=== PATIENT | male | born 1995 | race Hispanic/Latino ===

== ENCOUNTER 2024-07-13 09:54 | Emergency (ER) | payer SELFPAY ==
[2024-07-13] MEDS: Ketorolac 30 MG/ML SDV IM ONE (10:50)
== END 2024-07-13 11:10 | disposition home or self-care (01) ==
LOC: MW.ED 09:54
DX: M54.50 Low back pain, unspecified (principal); Z75.3 Unavailability and inaccessibility of health-care facilities
CPT/HCPCS: 96372; 99283; J1885; 99282